=== PATIENT | male | born 1935 | race Caucasian/White ===

== ENCOUNTER 2017-01-17 05:54 | Day surgery (SDC) | payer MEDICARE, OTHER ==
[2017-01-17] MEDS ORDERED: IV START KIT ONE (05:59)
[2017-01-17] MEDS ORDERED: LACTATED RINGERS 1,000 ML ONE (05:59)
[2017-01-17] MEDS ORDERED: CEFAZOLIN SODIUM 2 GRAM PREMIX 100 ML IV PRN (06:00)
[2017-01-17] MEDS ORDERED: CEFAZOLIN SODIUM 2 GRAM PREMIX 100 ML IV ONE (06:02)
[2017-01-17] MEDS ORDERED: BUPIVACAINE 0.75% SPINAL AMPUL 2 ML ONE (07:09)
[2017-01-17] MEDS ORDERED: SPINAL PROCEDURAL TRAY 1 EACH ONE (07:09)
[2017-01-17] MEDS ORDERED: FENTANYL 100 MCG/2 ML VIAL ONE (07:10)
[2017-01-17] MEDS ORDERED: MIDAZOLAM HCL 1 MG/ML 2ML VIAL ONE ×2 (07:10→07:47)
[2017-01-17] MEDS ORDERED: OPIUM/BELLADONNA ALKALOIDS 1 EACH SUP PR ONE (07:24)
[2017-01-17] MEDS ORDERED: PROMETHAZINE HCL 25 MG/ML VIAL IM PRN (07:41)
[2017-01-17] MEDS ORDERED: MEPERIDINE 25 MG/ML SYRINGE IV PRN (07:41)
[2017-01-17] MEDS ORDERED: HYDRALAZINE HCL 20 MG/1 ML VIAL IV PRN (07:41)
[2017-01-17] MEDS ORDERED: ONDANSETRON 4 MG/2ML 2 ML VIAL IV PRN ×2 (07:41→08:53)
[2017-01-17] MEDS ORDERED: NALOXONE HCL 0.4 MG/ML VIAL IV PRN (07:41)
[2017-01-17] MEDS ORDERED: MORPHINE SULFATE 4 MG/ML SYRINGE IV PRN (07:41)
[2017-01-17] MEDS ORDERED: ATROPINE SULFATE 0.4 MG/1 ML VIAL IV PRN (07:41)
[2017-01-17] MEDS ORDERED: LACTATED RINGERS 1,000 ML IV SCH (07:45)
[2017-01-17] MEDS ORDERED: HYDROCODONE/ACETAMINOPHEN 5/325MG TABLET PO PRN (08:53)
[2017-01-17] MEDS ORDERED: MORPHINE SULFATE 2 MG/ML SYRINGE IV PRN (08:53)
[2017-01-17] MEDS ORDERED: PHENAZOPYRIDINE HCL 200 MG TABLET PO SCH (09:00)
--- NOTE | 2017-01-17 12:53 | OP ---
INDIGO RUDOLPH [id number] DATE OF OPERATION: January 17, 2017 SURGEON: Panchito Wooten M.D. STRATEGIC ANALYST: None. ANESTHESIA: Spinal. 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 POSTOPERATIVE DIAGNOSES: 1. 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 2. 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 PROCEDURE: TRANSURETHRAL LASER RESECTION OF THE PROSTATE AND PROSTATOMEMBRANOUS STRICTURE. SPECIMENS: None. 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 Dysfunctional voiding symptoms progressed and he developed retention in 2008. The membranous stricture was noted at the time. He has undergone laser resection in 2009 and required subsequent dilatations and intermittent catheterizations. Now he has marked increase in dysfunctional symptoms and difficulty catheterizing. There is a marked increase in the buildup of obstructing stricture tissue beyond the scope of dilatation. FINDINGS: The distal urethra appears normal. Bulbous urethra near the membranous zone and the membranous urethra are tightly contracted by circumferential scar tissue. This dense tissue leads into the prostatic urethra which is contracted down also, but there was an anterior cleft that could be opened through prostatic tissue allowing access through the channel. PROCEDURE: The patient was identified and brought to the operating room where spinal anesthetic was applied. Then he was placed in a dorsal lithotomy position. The genital region was prepared and draped sterilely. We calibrated the distal urethra with [place] sounds up to 30 Maori, and then introduced a laser scope. Using saline as an irrigant and a 1000 micron Cyber laser fiber at an energy of 80 cash, we began interrupting the built up stricture tissue. Unfortunately we rapidly developed difficulty with bubbles building up and they could not be dispersed with increasing the flow. Therefore, we switched over to a resectoscope and a button electrode. With this, I worked anteriorly through stricture tissue until I got into the stricture tissue and I got into the prostatic urethra and could pass up into the bladder neck. At this level, I continued to use the button electrode to create an anterior cleft to expand the prostatic urethra. Once I had easy access through the prostatic urethra, I switched back to the laser scope and continued resection of the accumulated scar tissue, now working anteriorly through the membranous urethra and first portion of the bulbous urethra. Accumulated lumps of tissue were removed by laser vaporization. Once the field was adequately open and no more ridges were felt, I removed the laser scope and used Lucio sounds which were passed easily all the way up to #30 Maori. I then passed a 24 Maori Li catheter with a 30 mL balloon and initiated three-way irrigation simply to observe for hematuria. Estimated blood loss less than 25 mL. Resection time approximately 40 minutes. No early complications. Patient tolerated the procedure well and was taken in stable condition to the postanesthesia room. A total of 22 kilojoules were used on the laser. cc: Panchito Wooten M.D. Nicky Walker M.D.
== END 2017-01-17 12:35 | disposition home or self-care (01) ==
LOC: SDC 05:54
PROVIDERS: ATTEND Urology
PROC: 0VB08ZZ Excision of Prostate, Via Natural or Artificial Opening Endoscopic (ICD-10-PCS; principal; 2017-01-17)
DX: N32.0 Bladder-neck obstruction (principal); N35.8 Other urethral stricture; N42.89 Other specified disorders of prostate; Z87.891 Personal history of nicotine dependence; Y84.2 Radiological procedure and radiotherapy as the cause of abnormal reaction of the patient, or of later complication, without mention of misadventure at the time of the procedure; Z85.46 Personal history of malignant neoplasm of prostate; Z92.3 Personal history of irradiation
CPT/HCPCS: 52648; J3010; A9270 ×2; J2250 ×2; J7120; J0690